=== PATIENT | male | born 1980 | race Caucasian/White ===

== ENCOUNTER 2023-06-16 11:28 | Outpatient (CLI) | payer BC, SELFPAY ==
--- NOTE | 2023-06-16 12:53 | W.ANESCHARGE ---
Anesthesia Charges Start Date/Time Anesthesia Start Date: 06/16/23 Anesthesia Start Time: 12:32 Stop Date/Time Anesthesia Stop Date: 06/16/23 Anesthesia Stop Time: 13:13
--- NOTE | 2023-06-16 13:15 | W.ANESCHARGE ---
Anesthesia Charges Start Date/Time Anesthesia Start Date: 06/16/23 Anesthesia Start Time: 12:32 Stop Date/Time Anesthesia Stop Date: 06/16/23 Anesthesia Stop Time: 13:13
== END 2023-06-16 11:29 | disposition home or self-care (01) ==
LOC: OP CLINIC 11:30
PROVIDERS: PCP Family Medicine; Visit Provider Internal Medicine Gastroenterology
DX: Z12.11 Encounter for screening for malignant neoplasm of colon (principal); K63.5 Polyp of colon; K51.40 Inflammatory polyps of colon without complications; K51.50 Left sided colitis without complications
CPT/HCPCS: 00811; 45380; 45385; 88305; J2704